=== PATIENT | female | born 1960 | race Caucasian/White ===

== ENCOUNTER → 2018-03-09 | Outpatient (CLI) | payer OTHER ==
--- NOTE | 2018-03-09 17:16 | PCVCIMAG ---
APPROVED REPORT Study performed: 03/09/2018 15:05:24 Exam: Stress Echocardiogram Indication: Hyperlipidemia, Dyspnea, Chest fullness, Family hx of CAD Patient Location: Echo lab Stress Nurse: Kaylan Hendricks RN Status: routine Ht: 5 ft 5 in HR: 88 bpm BP: 122/78 mmHg Rhythm: NSR Medical History Medical History: Hyperlipidemia, Family history of CAD Exercise History: Physically active Procedure The patient underwent an Exercise Stress Test using the Jose C Protocol. Blood pressure, heart rate, and EKG were monitored. An Echocardiogram was performed by computer technician in four stages in quad fashion. At peak stress, four selected images were obtained and placed side by side with resting images for comparison. Stress Test Details Stress Test: Exercise stress testing was performed using a modified Jose C protocol. HR Resting HR: 88 bpmMax Heart Rate (APMHR): 165 bpm Max HR Achieved: 171 bpmTarget HR (85% APMHR): 140 bpm % of APMHR: 103 HR response to stress: Normal HR response to stress BP Resting BP: 122/78 mmHg Max BP: 142/78 mmHg ECG Resting ECG: Sinus Rhythm Stress ECG: Sinus Rhythm Recovery ECG: Sinus Rhythm Clinical Reason for Termination: Maximal effort Exercise duration: 171 min sec Highest Stage Achieved: Stage 5: 5.0 mph at 18% grade. Exercise capacity: 16.30 METs Overall Exercise Capacity for Age: Good Pre-Stress Echo The resting Echocardiogram showed normal left ventricular contractility with an estimated Ejection Fraction of about 55-60%. Post-Stress Echo The stress Echocardiogram showed normal left ventricular contractility with an estimated Ejection Fraction of about 60-65%. Conclusion Clinical Response: Non-ischemic Exercise Capacity: Superior Stress ECG Response: Non-ischemic Stress Echo Images: Non-ischemic Other Information Study Quality: Adequate
== END | disposition home or self-care (01) ==
LOC: PCVCIMAG 15:30
PROVIDERS: ATTEND Internal Medicine Cardiovascular Disease
DX: R06.09 Other forms of dyspnea (principal); R53.83 Other fatigue; E78.5 Hyperlipidemia, unspecified; Z82.49 Family history of ischemic heart disease and other diseases of the circulatory system
CPT/HCPCS: 93325; 93351